=== PATIENT | female | born 1990 | race Caucasian/White ===

== ENCOUNTER → 2021-05-02 15:36 | Outpatient (BNVA) | payer SELFPAY | DX: Z76.89 Persons encountering health services in other specified circumstances (principal) ==

== ENCOUNTER 2022-09-16 18:26 | Emergency (ER) | payer OTHER, SELFPAY ==
--- NOTE | ~2022-09-16 | XR_ITS ---
EXAMINATION: XR THORACIC SPINE CLINICAL INFORMATION: Back pain COMPARISON: Dorsal spine 11/21/2016 TECHNIQUE: 2 views of the thoracic spine were obtained. FINDINGS: Thoracic spine vertebrae have normal height and alignment. There is a mild dextroscoliosis of thoracolumbar spine. Thoracic disc space heights are normal. No significant degenerative change. No focal bone lesion. No paraspinal soft tissue abnormality. Compared to the prior study there is no change. XR/XR thoracic spine 3V IMPRESSION: No acute abnormality of the thoracic spine. Mild dextroscoliosis of thoracolumbar spine.
[2022-09-16 19:07] VITALS: BP 135/99; PULSE 89; RESP 20; TEMP 36.1; O2SAT 99; BMI 43.8
--- NOTE | 2022-09-16 19:08 | ED.BACK ---
HPI - Back Pain/Injury General Chief Complaint: Back Pain/Injury <JONATHON Mendez Last Filed: 09/16/22 19:15> Stated Complaint: Severe L lower back pain <JONATHON Mendez Last Filed: 09/16/22 19:15> Time Seen by Provider: 09/16/22 20:10 <JONATHON Mendez Last Filed: 09/16/22 19:15> Source: patient <JONATHON Shrestha Last Filed: 09/16/22 22:18> Mode of arrival: ambulatory <JONATHON Shrestha Last Filed: 09/16/22 22:18> Limitations: no limitations <JONATHON Shrestha Last Filed: 09/16/22 22:18> History of Present Illness HPI Narrative: 32-year-old female no significant medical history presents to the emergency department with left-sided mid/lower back pain that started last week worsening over the past day. Patient denies trauma to the area. She reports the pain is severe, intermittent in nature, sharp, worse with movement particularly with twisting motions and sometimes worse with deep breathing. Patient tells me this has happened to her before however this episode is not going away. Patient denies blunt trauma to the area. She tells me that she was a former smoker however currently vapes, she is currently on oral contraceptives, no history of PE or DVT, no history of cancer, no history of long travel. Patient denies chest pain, shortness of breath, changes in urination, abdominal pain, fevers, chills, nausea, vomiting. <JONATHON Shrestha Last Filed: 09/16/22 22:18> Related Data Home Medications: Previous Rx's Medication Instructions Recorded cyclobenzaprine 10 mg tablet 10 mg PO BEDTIME PRN muscle spasm 09/16/22 #7 tabs ketorolac 10 mg tablet 10 mg PO TID PRN pain 5 days #15 09/16/22 tabs lidocaine 5 % topical patch 1 patch topical DAILY PRN pain #15 09/16/22 ea <JONATHON Mendez Last Filed: 09/16/22 19:15> Allergies/Adverse Reactions: Allergies Allergy/AdvReac Type Severity Reaction Status Date / Time No Known Allergies Allergy Verified 09/16/22 19:13 <JONATHON Mendez - Last Filed: 09/16/22 19:15> Review of Systems Review of Systems: Constitutional : No Weight loss, No Fever, No Chills, ENT/Mouth : No Hearing loss, No Ear Pain, No Nasal Congestion, No Sinus Pain, No Hoarseness, No sore throat, No Rhinorrhea, No Swallowing Difficulty Cardiovascular : No Chest Pain, No SOB Respiratory : No Cough, No Dyspnea Gastrointestinal : No Nausea, No Vomiting, No Diarrhea, No abdominal Pain, No Hematochezia, No Melena Genitourinary : No Dysuria, No Urinary Frequency, No Hematuria, No Urinary Incontinence, Musculoskeletal : positive back pain Skin : No Skin Lesions, No rash Neuro : No Weakness, No Numbness, No Paresthesias, no loss of bowel or bladder incontinence, no saddle anesthesia <JONATHON Shrestha - Last Filed: 09/16/22 22:18> Yes all other systems are reviewed and are negative <JONATHON Shrestha - Last Filed: 09/16/22 22:18> [facility] Past Medical History Attestation statement: The following information was validated with the patient. <JONATHON Shrestha - Last Filed: 09/16/22 22:18> Source: old records reviewed and nursing notes reviewed <JONATHON Shrestha - Last Filed: 09/16/22 22:18> Social History Social History: Social History Advance Directives: No Advance Directives Information Provided: Yes <JONATHON Mendez - Last Filed: 09/16/22 19:15> Physical Exam Vital Signs: Vital Signs: Last Vital Signs Temp 96.9 F 09/16/22 19:07 Pulse 89 09/16/22 19:07 Resp 20 09/16/22 19:07 BP 135/99 H 09/16/22 19:07 Pulse Ox 99 09/16/22 19:07 O2 Del Method 09/16/22 19:07 BMI result Body Mass Index 43.8 <JONATHON Mendez - Last Filed: 09/16/22 19:15> Vital Signs: Last Vital Signs Temp 96.9 F 09/16/22 19:07 Pulse 89 09/16/22 19:07 Resp 20 09/16/22 19:07 BP 135/99 H 09/16/22 19:07 Pulse Ox 99 09/16/22 19:07 O2 Del Method 09/16/22 19:07 BMI result Body Mass Index 43.8 vss <JONATOHN Shrestha - Last Filed: 09/16/22 22:18> Appearance: Alert.? Oriented X3.? No acute distress.? Head: Normocephalic, atraumatic, no step-offs or deformities Eyes: Pupils equal, round and reactive to light.? ENT: Pharynx normal.? Neck: Normal inspection.? Neck supple.? CVS: Normal heart rate and rhythm.? Pulses normal.? Respiratory: No respiratory distress.? Breath sounds normal.? Abdomen: Soft and nontender.? Skin: Skin warm and dry.? Normal skin color.? Normal skin turgor.? Extremities: No lower extremity edema.? No calf ttp. 5/5 strength to bilateral upper and lower extremities Back: No midline tenderness, no C-spine tenderness, full range of motion, no CVA tenderness bilaterally + pain with palpation to left lumbar and thoracic paraspinous muscles. No midline tenderness Neuro: Oriented X 3.? No motor deficit.? No sensory deficit. CN 2-12 intact . Ambulating with steady gait normal coordination. No saddle paresthesias. <JONATHON Shrestha - Last Filed: 09/16/22 22:18> Course Course Course Narrative: RME-- 32 yo F w/ no sig pmhx presenting to the ED c/o left midback pain beginning last week worsening today. Admits pain worse with movement. Denies dysuria/hematuria, injury, trauma, fall, incontinence/retention Left thoracic paraspinal tenderness noted on exam. No red flag symptoms. X-rays ordered per patient request, UA/. Patient is driving today <JONATHON Mendez - Last Filed: 09/16/22 19:15> Reevaluation(s) Reevaluation #1: Xray of thoracic spine no acute findings however mild dextroscoliosis of thoracolumbar spine. CBC within normal limits. Chemistry with no acute findings requiring intervention. Troponin negative, D-dimer negative. UA clean I did at suspect infection, likely contaminated. Urine negative. I do not suspect ACS or PE. Patient given Toradol, Lidoderm patches. Educated patient on diagnosis and treatment plan, answered all question, patient verbalizes understanding. At this time patient will be discharged home, advised to return with new or worsening symptoms. Educated on worrisome signs and symptoms and when to return. At this time I feel comfortable discharge home. <JONATHON Shrestha - Last Filed: 09/16/22 22:18> Time: 22:17 <JONATHON Shrestha - Last Filed: 09/16/22 22:18> Medications Administered Discontinued Medications Generic Name Dose Route Start Last Admin Trade Name Freq PRN Reason Stop Dose Admin Ketorolac Tromethamine 30 mg 09/16/22 21:41 09/16/22 22:01 Ketorolac Tromethamine 30 Mg/Ml Vial IM 09/16/22 21:42 30 mg ONCE ONE Administration Lidocaine 1 patch 09/16/22 21:41 09/16/22 22:01 Lidocaine 4 % Patch Adh..Patch TRANSDERMA 09/16/22 21:42 1 patch ONCE ONE Administration Protocol <JONATHON Mendez - Last Filed: 09/16/22 19:15> Medications Administered Discontinued Medications Generic Name Dose Route Start Last Admin Trade Name Freq PRN Reason Stop Dose Admin Ketorolac Tromethamine 30 mg 09/16/22 21:41 09/16/22 22:01 Ketorolac Tromethamine 30 Mg/Ml Vial IM 09/16/22 21:42 30 mg ONCE ONE Administration Lidocaine 1 patch 09/16/22 21:41 09/16/22 22:01 Lidocaine 4 % Patch Adh..Patch TRANSDERMA 09/16/22 21:42 1 patch ONCE ONE Administration Protocol <JONATHON Shrestha - Last Filed: 09/16/22 22:18> Medical Decision Making Medical Decision Making MDM Narrative: 32-year-old female presents with mid/lower back pain atraumatic to the left side. Worsening over the past day however present for a week. Physical exam with pain with palpation to left lumbar and thoracic paraspinous muscles. No midline tenderness. Ambulatory with steady gait normal coordination. Likely lumbar/thoracic sprain/strain or spasm. Unlikely cauda equina, epidural abscess, PE, kidney stone, pyelo. Plan at this time labs, imaging, urine. <JONATHON Shrestha - Last Filed: 09/16/22 22:18> Differential Diagnosis Differential Diagnoses: The differential diagnosis associated with the presentation includes <JONATHON Shrestha - Last Filed: 09/16/22 22:18> Likely lumbar/thoracic sprain/strain or spasm. Unlikely cauda equina, epidural abscess, PE, kidney stone, pyelo. <JONATHON Shrestha - Last Filed: 09/16/22 22:18> Admission/Observation Consideration of admission/observation: Escalation of care including admission/observation considered <JONATHON Shrestha - Last Filed: 09/16/22 22:18> Not indicated <JONATHON Shrestha - Last Filed: 09/16/22 22:18> Lab Data MDM Lab Attestation statement: I reviewed the patient's lab results. <JONATHON Shrestha - Last Filed: 09/16/22 22:18> Result Diagrams: : 09/16/22 20:52 09/16/22 20:52 <JONATHON Mendez - Last Filed: 09/16/22 19:15> Labs: Lab Results 09/16/22 09/16/22 09/16/22 Range/Units 19:25 19:25 20:52 WBC (4.8-10.8) X10*3/uL RBC (4.20-5.50) X10*6/uL Hgb (12.0-16.0) g/dl Hct (37.0-47.0) % MCV (80.0-98.0) fL MCH (27.0-33.0) pg MCHC (31.0-35.0) g/dl RDW (11.0-16.0) % Plt Count (160-400) X10*3/uL MPV (9.4-12.3) fL Immature Gran % (Auto) (0.0-0.4) % Neut % (Auto) (45-73) % Lymph % (Auto) (20-40) % Bremer % (Auto) (2-11) % Eos % (Auto) (0-4) % Baso % (Auto) (0-2) % Lymph # (Auto) (1.2-4.9) X10*3/uL Bremer # (Auto) (0.1-1.2) X10*3/uL Eos # (Auto) (0.0-0.4) X10*3/uL Baso # (Auto) (0.0-0.2) X10*3/uL Abs Immat Gran (auto) (0.00-0.03) X10*3/uL Absolute Neuts (auto) (2.0-8.3) x10*3/uL Absolute Nucleated RBC (0.0-0.012) X10*3/uL Nucleated RBC % (auto) (0.0-0.2) /100WBC D-Dimer High Sensitivty < 150 NG/ML Sodium (135-145) mmol/L Potassium (3.3-5.1) mmol/L Chloride (96-108) mmol/L Carbon Dioxide (22-29) mmol/L Anion Gap (12-20) BUN (9-16) mg/dL Creatinine (0.5-1.4) mg/dL Estim Creat Clear Calc Estimated GFR Random Glucose (60-115) mg/dL Calcium (8.4-10.2) mg/dL Magnesium (1.6-2.6) mg/dL Total Bilirubin (0.0-1.0) mg/dL AST (5-31) U/L ALT (0-31) U/L Alkaline Phosphatase (39-117) U/L Troponin I High Sens (<3.5-17.0) ng/L Total Protein (6.5-8.0) g/dL Albumin (3.5-5.0) g/dL Urine Color Yellow Urine Appearance Clear Urine pH 5.5 (5.0-9.0) Ur Specific [place] >= 1.030 H (1.005-1.025) Urine Protein Negative (Neg-Trace) mg/dL Urine Glucose (UA) Negative (Negative) mg/dL Urine Ketones Negative (Negative) mg/dL Urine Blood Negative (Negative) Urine Nitrite Negative (Negative) Ur Leukocyte Esterase Trace H (Negative) Urine RBC 0-2 (0-2) /HPF Urine WBC 11-20 H (0-5) /HPF Ur Squamous Epith Cells 3-5 (0-2) /HPF Urine Bacteria Trace (None Seen) Hyaline Casts 3-5 (0-2) /LPF Urine Test NEGATIVE (NEGATIVE) 09/16/22 09/16/22 09/16/22 Range/Units 20:52 20:52 20:52 WBC 7.7 (4.8-10.8) X10*3/uL RBC 4.46 (4.20-5.50) X10*6/uL Hgb 12.3 (12.0-16.0) g/dl Hct 38.7 (37.0-47.0) % MCV 86.8 (80.0-98.0) fL MCH 27.6 (27.0-33.0) pg MCHC 31.8 (31.0-35.0) g/dl RDW 12.7 (11.0-16.0) % Plt Count 245 (160-400) X10*3/uL MPV 9.5 (9.4-12.3) fL Immature Gran % (Auto) 0.3 (0.0-0.4) % Neut % (Auto) 53.2 (45-73) % Lymph % (Auto) 34.6 (20-40) % Bremer % (Auto) 7.9 (2-11) % Eos % (Auto) 3.3 (0-4) % Baso % (Auto) 0.7 (0-2) % Lymph # (Auto) 2.7 (1.2-4.9) X10*3/uL Bremer # (Auto) 0.6 (0.1-1.2) X10*3/uL Eos # (Auto) 0.3 (0.0-0.4) X10*3/uL Baso # (Auto) 0.1 (0.0-0.2) X10*3/uL Abs Immat Gran (auto) 0.02 (0.00-0.03) X10*3/uL Absolute Neuts (auto) 4.1 (2.0-8.3) x10*3/uL Absolute Nucleated RBC 0.000 (0.0-0.012) X10*3/uL Nucleated RBC % (auto) 0.0 (0.0-0.2) /100WBC D-Dimer High Sensitivty NG/ML Sodium 139 (135-145) mmol/L Potassium 3.9 (3.3-5.1) mmol/L Chloride 108 (96-108) mmol/L Carbon Dioxide 23 (22-29) mmol/L Anion Gap 12 (12-20) BUN 12 (9-16) mg/dL Creatinine 0.69 (0.5-1.4) mg/dL Estim Creat Clear Calc 163.6 Estimated GFR > 60 Random Glucose 77 (60-115) mg/dL Calcium 8.9 (8.4-10.2) mg/dL Magnesium 2.1 (1.6-2.6) mg/dL Total Bilirubin 0.8 (0.0-1.0) mg/dL AST 18 (5-31) U/L ALT 22 (0-31) U/L Alkaline Phosphatase 82 (39-117) U/L Troponin I High Sens < 3.5 (<3.5-17.0) ng/L Total Protein 7.2 (6.5-8.0) g/dL Albumin 4.4 (3.5-5.0) g/dL Urine Color Urine Appearance Urine pH (5.0-9.0) Ur Specific [place] (1.005-1.025) Urine Protein (Neg-Trace) mg/dL Urine Glucose (UA) (Negative) mg/dL Urine Ketones (Negative) mg/dL Urine Blood (Negative) Urine Nitrite (Negative) Ur Leukocyte Esterase (Negative) Urine RBC (0-2) /HPF Urine WBC (0-5) /HPF Ur Squamous Epith Cells (0-2) /HPF Urine Bacteria (None Seen) Hyaline Casts (0-2) /LPF Urine Test (NEGATIVE) <JONATHON Mendez - Last Filed: 09/16/22 19:15> Lab Results 09/16/22 09/16/22 09/16/22 Range/Units 19:25 19:25 20:52 WBC (4.8-10.8) X10*3/uL RBC (4.20-5.50) X10*6/uL Hgb (12.0-16.0) g/dl Hct (37.0-47.0) % MCV (80.0-98.0) fL MCH (27.0-33.0) pg MCHC (31.0-35.0) g/dl RDW (11.0-16.0) % Plt Count (160-400) X10*3/uL MPV (9.4-12.3) fL Immature Gran % (Auto) (0.0-0.4) % Neut % (Auto) (45-73) % Lymph % (Auto) (20-40) % Bremer % (Auto) (2-11) % Eos % (Auto) (0-4) % Baso % (Auto) (0-2) % Lymph # (Auto) (1.2-4.9) X10*3/uL Bremer # (Auto) (0.1-1.2) X10*3/uL Eos # (Auto) (0.0-0.4) X10*3/uL Baso # (Auto) (0.0-0.2) X10*3/uL Abs Immat Gran (auto) (0.00-0.03) X10*3/uL Absolute Neuts (auto) (2.0-8.3) x10*3/uL Absolute Nucleated RBC (0.0-0.012) X10*3/uL Nucleated RBC % (auto) (0.0-0.2) /100WBC D-Dimer High Sensitivty < 150 NG/ML Sodium (135-145) mmol/L Potassium (3.3-5.1) mmol/L Chloride (96-108) mmol/L Carbon Dioxide (22-29) mmol/L Anion Gap (12-20) BUN (9-16) mg/dL Creatinine (0.5-1.4) mg/dL Estim Creat Clear Calc Estimated GFR Random Glucose (60-115) mg/dL Calcium (8.4-10.2) mg/dL Magnesium (1.6-2.6) mg/dL Total Bilirubin (0.0-1.0) mg/dL AST (5-31) U/L ALT (0-31) U/L Alkaline Phosphatase (39-117) U/L Troponin I High Sens (<3.5-17.0) ng/L Total Protein (6.5-8.0) g/dL Albumin (3.5-5.0) g/dL Urine Color Yellow Urine Appearance Clear Urine pH 5.5 (5.0-9.0) Ur Specific [place] >= 1.030 H (1.005-1.025) Urine Protein Negative (Neg-Trace) mg/dL Urine Glucose (UA) Negative (Negative) mg/dL Urine Ketones Negative (Negative) mg/dL Urine Blood Negative (Negative) Urine Nitrite Negative (Negative) Ur Leukocyte Esterase Trace H (Negative) Urine RBC 0-2 (0-2) /HPF Urine WBC 11-20 H (0-5) /HPF Ur Squamous Epith Cells 3-5 (0-2) /HPF Urine Bacteria Trace (None Seen) Hyaline Casts 3-5 (0-2) /LPF Urine Test NEGATIVE (NEGATIVE) 09/16/22 09/16/22 09/16/22 Range/Units 20:52 20:52 20:52 WBC 7.7 (4.8-10.8) X10*3/uL RBC 4.46 (4.20-5.50) X10*6/uL Hgb 12.3 (12.0-16.0) g/dl Hct 38.7 (37.0-47.0) % MCV 86.8 (80.0-98.0) fL MCH 27.6 (27.0-33.0) pg MCHC 31.8 (31.0-35.0) g/dl RDW 12.7 (11.0-16.0) % Plt Count 245 (160-400) X10*3/uL MPV 9.5 (9.4-12.3) fL Immature Gran % (Auto) 0.3 (0.0-0.4) % Neut % (Auto) 53.2 (45-73) % Lymph % (Auto) 34.6 (20-40) % Bremer % (Auto) 7.9 (2-11) % Eos % (Auto) 3.3 (0-4) % Baso % (Auto) 0.7 (0-2) % Lymph # (Auto) 2.7 (1.2-4.9) X10*3/uL Bremer # (Auto) 0.6 (0.1-1.2) X10*3/uL Eos # (Auto) 0.3 (0.0-0.4) X10*3/uL Baso # (Auto) 0.1 (0.0-0.2) X10*3/uL Abs Immat Gran (auto) 0.02 (0.00-0.03) X10*3/uL Absolute Neuts (auto) 4.1 (2.0-8.3) x10*3/uL Absolute Nucleated RBC 0.000 (0.0-0.012) X10*3/uL Nucleated RBC % (auto) 0.0 (0.0-0.2) /100WBC D-Dimer High Sensitivty NG/ML Sodium 139 (135-145) mmol/L Potassium 3.9 (3.3-5.1) mmol/L Chloride 108 (96-108) mmol/L Carbon Dioxide 23 (22-29) mmol/L Anion Gap 12 (12-20) BUN 12 (9-16) mg/dL Creatinine 0.69 (0.5-1.4) mg/dL Estim Creat Clear Calc 163.6 Estimated GFR > 60 Random Glucose 77 (60-115) mg/dL Calcium 8.9 (8.4-10.2) mg/dL Magnesium 2.1 (1.6-2.6) mg/dL Total Bilirubin 0.8 (0.0-1.0) mg/dL AST 18 (5-31) U/L ALT 22 (0-31) U/L Alkaline Phosphatase 82 (39-117) U/L Troponin I High Sens < 3.5 (<3.5-17.0) ng/L Total Protein 7.2 (6.5-8.0) g/dL Albumin 4.4 (3.5-5.0) g/dL Urine Color Urine Appearance Urine pH (5.0-9.0) Ur Specific [place] (1.005-1.025) Urine Protein (Neg-Trace) mg/dL Urine Glucose (UA) (Negative) mg/dL Urine Ketones (Negative) mg/dL Urine Blood (Negative) Urine Nitrite (Negative) Ur Leukocyte Esterase (Negative) Urine RBC (0-2) /HPF Urine WBC (0-5) /HPF Ur Squamous Epith Cells (0-2) /HPF Urine Bacteria (None Seen) Hyaline Casts (0-2) /LPF Urine Test (NEGATIVE) <JONATHON Shrestha - Last Filed: 09/16/22 22:18> Independent Interpretation I performed an independent interpretation of an: Plain X-Ray (XR/XR thoracic spine 3V IMPRESSION: No acute abnormality of the thoracic spine. Mild dextroscoliosis of thoracolumbar spine. ) <JONATHON Shrestha - Last Filed: 09/16/22 22:18> Radiology Impression Discussion of test interpretation with radiology: I have reviewed the radiologist's reading. <JONATHON Shrestha - Last Filed: 09/16/22 22:18> Independent Historian Clinical information obtained from an independent historian. History obtained from or confirmed by: Other (Self ) <JONATHON Shrestha - Last Filed: 09/16/22 22:18> Core Measures AMI core measures followed: Yes <JONATHON Shrestha - Last Filed: 09/16/22 22:18> Measure exclusions: not indicated <JONATHON Shrestha - Last Filed: 09/16/22 22:18> Discharge Plan Discharge Clinical Impression: Thoracic back pain, Strain of lumbar region <JONATHON Mendez - Last Filed: 09/16/22 19:15> Patient Disposition: Home, Self-Care <JONATHON Mendez - Last Filed: 09/16/22 19:15> Instructions: Low Back Strain (ED), Thoracic Pain (ED), Back Pain (ED) <JONATHON Mendez - Last Filed: 09/16/22 19:15> Additional Instructions: Take your medications as prescribed. If you were prescribed antibiotics today, it is important that you take your medication to their entirety, do not skip any doses, do not finish them early. Follow-up with your primary care provider this week. Return to the emergency department with new or worsening symptoms. Such as fevers, chills, chest pain, shortness of breath, nausea, vomiting, dizziness, headache, vision changes, lethargy In case of emergency call 911 Cyclobenzaprine is muscle relaxer can make you drowsy please do not take this while driving or operating machinery. Do not mix with alcohol. Take Toradol as prescribed, do not mix with alcohol, other NSAIDs or ibuprofen. It can cause acute kidney injury an increased risk for bleeding. <JONATHON Mendez - Last Filed: 09/16/22 19:15> Prescriptions: New cyclobenzaprine 10 mg tablet 10 mg PO BEDTIME PRN (Reason: muscle spasm) Qty: 7 0RF ketorolac 10 mg tablet 10 mg PO TID PRN (Reason: pain) 5 Days Qty: 15 0RF Rx Instructions: Tolerated IM in the department lidocaine 5 % adhesive patch,medicated 1 patch topical DAILY PRN (Reason: pain) Qty: 15 0RF Rx Instructions: leave on most painful area for up to 12 hrs <JONATHON Mendez - Last Filed: 09/16/22 19:15> Referrals: Physician,Unknown J [Primary Care Provider] - 2 days <JONATHON Mendez - Last Filed: 09/16/22 19:15> Stand Alone Forms: Work/School Release <JONATHON Mendez - Last Filed: 09/16/22 19:15>
--- OUTSIDE RECORDS SUMMARY | 2022-09-16 19:33 | XMS_ITS | Continuity of Care Document ---
:1990 Author Organization [facility] [address] Address [address] [place] [address]- Care Team Providers Name Role Phone Regino Horton MD Primary Care Physician Encounter [facility] [place](s): 04/28/22 - 05/28/22 [facility] [address] [place] [address]- Attending Physician: Albert Tejeda Admitting Physician: AdmtrAlbert Referring Physician: AdmtrAlbert Allergies, Adverse Reactions, Alerts No Known Allergies Immunizations Given and Recorded Vaccine Date Status Refusal Reason Human Papillomavirus Vaccine 05/24/13 Given tetanus/diphtheria/pertussis, acel(Tdap) 09/29/11 Given influenza virus vaccine, inactivated 06/10/11 Given Medications ibuprofen 600 mg oral tablet 600 mg, 1, tablet, By Mouth, Every 6 hours, PRN, # 25 tablet, Refills 0, Tot. Refills 0, Maintenance, Pain , Mild, 04/14/22 13:34:00 EDT, Route to Pharmacy Electronically, [facility]/pharmacy #[id number], Partial fill upon patient request if the prescription is fo... Start Date: 04/14/22 Status: OrderedoxyCODONE 5 mg oral tablet 5 mg, 1, tablet, By Mouth, Every 6 hours, PRN, # 12 tablet, Refills 0, Tot. Refills 0, Maintenance, Pain , Moderate, 04/14/22 8:51:00 EDT, Route to Pharmacy Electronically, [facility] #[id number],Partial fill upon patient request if the prescrip... Start Date: 04/14/22 Status: OrderedoxyCODONE 5 mg oral tablet 5 mg, 1, tablet, By Mouth, Every 6 hours, PRN, # 15 tablet, Refills 0, Tot. Refills 0, Maintenance, Pain , Moderate, 04/14/22 13:32:00 EDT, Route to Pharmacy Electronically, [facility]/pharmacy #[id number], Partialfill upon patient request if the prescription is... Start Date: 04/14/22 Status: OrderedSeasonale oral tablet 1 tablet, By Mouth, Daily, # 91 tablet, 2 Refills, Maintenance, 12/18/14 12:53:19, Tablet, 1 tablet By Mouth Daily,x91 days Start Date: 12/18/14 Stop Date: 09/17/15 Status: Ordered Problem List Condition Effective Dates Status Health Status Informant bicornuate uterus(Confirmed)1 Active Severe obesity(Confirmed) Active 1bicornuate uterus Care Team PersonnelName: Regino Horton MD Address: [address] [place] [address] [facility] [place], [place] [address]
--- OUTSIDE RECORDS SUMMARY | 2022-09-16 19:33 | XMS_ITS | Continuity of Care Document ---
:1990 Author Organization [facility] Address [address] [place] [address]- Care Team Providers Name Role Phone Clifford ISABEL, Regino Silva Primary Care Phys[place] [facility] [place] - 04/15/[address] [address]- Attending Physician: Melany Perez MD Admitting Physician: Melany Perez MD Allergies, Adverse Reactions, Alerts No Known Allergies Immunizations Given and Recorded Vaccine Date Status Refusal Reason Human Papillomavirus Vaccine 05/24/13 Given tetanus/diphtheria/pertussis, acel(Tdap) 09/29/11 Given influenza virus vaccine, inactivated 06/10/11 Given Medications acetaminophen 650 mg oral tablet, extended release 1 tablet = 650 mg, By Mouth, Every 8 hours, PRN Pain , Mild, for 7 days, # 20 tablet, 0 Refills, Acute 04/21/22 13:35:00 EDT, 04/14/22 13:35:00 EDT, ER Tablet, [facility]/pharmacy #[id number], Partial fill upon patient request if the prescription is for a schedule... Start Date: 04/14/22 Stop Date: 04/21/22 Status: Orderedibuprofen 600 mg oral tablet 600 mg, 1, tablet, By Mouth, Every 6 hours, PRN, # 25 tablet, Refills 0, Tot. Refills 0, Maintenance, Pain , Mild, 04/14/22 13:34:00 EDT, Route to Pharmacy Electronically, [facility]/pharmacy #[id number], Partial fill upon patient request if the prescription is fo... Start Date: 04/14/22 Status: OrderedoxyCODONE 5 mg oral tablet 5 mg, 1, tablet, By Mouth, Every 6 hours, PRN, # 12 tablet, Refills 0, Tot. Refills 0, Maintenance, Pain , Moderate, 04/14/22 8:51:00 EDT, Route to Pharmacy Electronically, [facility] #[id number],Partial fill upon patient request if the prescrip... Start Date: 04/14/22 Status: OrderedoxyCODONE 5 mg oral tablet 5 mg, 1, tablet, By Mouth, Every 6 hours, PRN, # 15 tablet, Refills 0, Tot. Refills 0, Maintenance, Pain , Moderate, 04/14/22 13:32:00 EDT, Route to Pharmacy Electronically, [facility]/pharmacy #[id number], Partialfill upon patient request if the prescription is... Start Date: 04/14/22 Status: OrderedSeasonale oral tablet 1 tablet, By Mouth, Daily, # 91 tablet, 2 Refills, Maintenance, 12/18/14 12:53:19, Tablet, 1 tablet By Mouth Daily,x91 days Start Date: 12/18/14 Stop Date: 09/17/15 Status: Ordered Problem List Condition Effective Dates Status Health Status Informant bicornuate uterus(Confirmed)1 Active Severe obesity(Confirmed) Active 1bicornuate uterus Vital Signs Most recent to oldest [Reference Range]: 1 Height 171.00 cm (04/08/22 11:01 AM) Blood Pressure [90-138/55-84 mm Hg] 140/78 mm Hg *H* (04/08/22 11:01 AM) Blood pressure sites Arm, right (04/08/22 11:01 AM)
[2022-09-16 19:34] LABS: Appearance Urine Clear; Color Urine Yellow; Glucose Urine UA Negative (Negative); Leukocyte Esterase Urine Trace (Negative); Nitrite Urine Negative (Negative); PH 5.5 (5.0-9.0); Specific Gravity - Urine >= 1.030 (1.005-1.025); UMIC TRIGGER UACC YES; Urine Blood Negative (Negative); Urine Ketones Negative (Negative); Urine Protein Negative (Neg-Trace)
--- OUTSIDE RECORDS SUMMARY | 2022-09-16 19:34 | XMS_ITS | Continuity of Care Document ---
:1990 Author Organization [facility] nter Address [address] [place] [id number]- Care Team Providers Name Role Phone Regino Horton MD Primary Care Physician Encounter [facility] [place] Date(s): 04/14/22 - 04/14/[address] [address]- Discharge Disposition: A-D/C Home Attending Physician: Melany Perez MD Admitting Physician: Melany Perez MD Referring Physician: Melany Perez MD Allergies, Adverse Reactions, [...] 13:35:00 EDT, 04/14/22 13:35:00 EDT, ER Tablet, [facility]/pharmacy #[id number], Partial fill upon patient request if the prescription is for a schedule... Start Date: 04/14/22 Stop Date: 04/21/22 Status: OrderedFENTanyl Inj 50 mcg, Injection, IV Push Slowly, Every 5 minutes, PRN for Pain , Moderate, Routine, 04/14/22 9:40:00 EDT Start Date: 04/14/22 Stop Date: 04/14/22 Status: Discontinuedibuprofen 600 mg oral tablet 600 mg, 1, tablet, By Mouth, Every 6 hours, PRN, # 25 tablet, Refills 0, Tot. Refills 0, Maintenance, Pain , Mild, 04/14/22 13:34:00 EDT, Route to Pharmacy Electronically, [facility]/pharmacy #[id number], Partial fill upon patient request if the prescription is fo... Start Date: 04/14/22 Status: OrderedoxyCODONE 5 mg oral tablet 5 mg, 1, tablet, By Mouth, Every 6 hours, PRN, # 12 tablet, Refills 0, Tot. Refills 0, Maintenance, Pain , Moderate, 04/14/22 8:51:00 EDT, Route to Pharmacy Electronically, [facility] #[id number],Partial fill upon patient request if the prescrip... Start Date: 04/14/22 Status: OrderedoxyCODONE 5 mg oral tablet 5 mg, 1, tablet, By Mouth, Every 6 hours, PRN, # 15 tablet, Refills 0, Tot. Refills 0, Maintenance, Pain , Moderate, 04/14/22 13:32:00 EDT, Route to Pharmacy Electronically, [facility]/pharmacy #[id number], Partialfill upon patient request if the prescription is... Start Date: 04/14/22 Status: OrderedPercocet-5 Tablet 1 tablet, Tablet, By Mouth, Every 4 hours, PRN for Pain , Moderate, Routine, 04/14/22 9:17:00 EDT Start Date: 04/14/22 Stop Date: 04/14/22 Status: DiscontinuedSeasonale oral tablet 1 tablet, By Mouth, Daily, # 91 tablet, 2 Refills, Maintenance, 12/18/14 12:53:19, Tablet, 1 tablet By Mouth Daily,x91 days Start Date: 12/18/14 Stop Date: 09/17/15 Status: Ordered Problem List Condition Effective Dates Status Health Status Informant bicornuate uterus(Confirmed)1 Active Severe obesity(Confirmed) Active 1bicornuate uterus Procedures Procedure Date Related Diagnosis Body Site Status Laparoscopy removal of IUD C ompleted Vital Signs Most recent to oldest 1 2 3 [Reference Range]: Height 170 cm (04/14/22 6:44 AM) Weight 139.3 kg (04/14/22 6:44 AM) Oxygen Saturation [94-100 %] 100 % 100 % 100 % (04/14/22 10:30 AM) (04/14/22 10:15 AM) (04/14/22 10:0 0 AM) Pulse Rate [55-90 bpm] 90 bpm (04/14/22 6:44 AM) Body Mass Index [18.5-24.99] 48.2 *>HHI* (04/14/22 6:44 AM) Blood Pressure [90-138/55-84 mm 126/69 mm Hg 126/69 mm Hg 127/81 mm Hg Hg] (04/14/22 10:30 AM) (04/14/22 10:15 AM) (04/14/22 10:0 0 AM) Respiratory Rate [16-30 br/min] 20 br/min 16 br/min 18 br/min (04/14/22 10:30 AM) (04/14/22 10:16 AM) (04/14/22 10:0 1 AM) Temperature [96.8-100.4 DegF] 98.2 DegF 97 DegF 97 .8 DegF (04/14/22 10:00 AM) (04/14/22 9:00 AM) (04/14/22 6:44 AM) Liters per Minute 6 L/min 6 L/min 6 L/min (04/14/22 9:15 AM) (04/14/22 9:10 AM) (04/14/22 9:05 A M) Mode of Delivery (Oxygen) Room air Room air Room a ir (04/14/22 10:30 AM) (04/14/22 10:15 AM) (04/14/22 10:0 0 AM) Blood pressure sites Arm, left (04/14/22 6:44 AM) Temperature Route Temporal Temporal Temporal (04/14/22 10:00 AM) (04/14/22 9:00 AM) (04/14/22 6:44 AM) Dry Weight 139.3 kg (04/14/22 6:44 AM) Weight Obtained Via Standing scale (04/14/22 6:44 AM) Dry Weight Obtained Via Standing scale (04/14/22 6:44 AM)
--- OUTSIDE RECORDS SUMMARY | 2022-09-16 19:34 | XMS_ITS | Continuity of Care Document ---
:1990 Author Organization [facility] Address [address] [place] [address]- Care Team Providers Name Role Phone Clifford ISABEL, Regino Silva Primary Care Physician Encounter [facility] [place] Date(s): 04/28/22 - 05/05/[address] [address]- Attending Physician: Melany Perez MD Admitting Physician: [...] 04/14/22 13:34:00 EDT, Route to Pharmacy Electronically, [facility]/pharmacy #[id number], Partial fill upon patient request if the prescription is fo... Start Date: 04/14/22 Status: OrderedoxyCODONE 5 mg oral tablet 5 mg, 1, tablet, By Mouth, Every 6 hours, PRN, # 12 tablet, Refills 0, Tot. Refills 0, Maintenance, Pain , Moderate, 04/14/22 8:51:00 EDT, Route to Pharmacy Electronically, [facility] #[id number],Partial fill upon patient request if the prescrip... Start Date: 04/14/22 Status: OrderedoxyCODONE 5 mg oral tablet 5 mg, 1, tablet, By Mouth, Every 6 hours, PRN, # 15 tablet, Refills 0, Tot. Refills 0, Maintenance, Pain , Moderate, 04/14/22 13:32:00 EDT, Route to Pharmacy Electronically, [facility]/pharmacy #[id number], Partialfill upon patient request if the prescription [...] recent to oldest [Reference Range]: 1 Height 170 cm (04/28/22 10:42 AM)
--- OUTSIDE RECORDS SUMMARY | 2022-09-16 19:34 | XMS_ITS | Continuity of Care Document ---
:1990 Author Organization [facility] Address [address] [place] [id number]- Care Team Providers Name Role Phone Clifford ISABEL, Regino Silva Primary Care Physician Encounter [facility] Date(s): 10/17/19 - 10/17/[address] [address]- [facility] Attending Physician: Alka Bonilla CNM Allergies, Adverse Reactions, Alerts Substance Reaction Severity Status NKA Active Immunizations Given and Recorded Vaccine Date Status Refusal Reason Human Papillomavirus Vaccine 05/24/13 Given tetanus/diphtheria/pertussis, acel(Tdap) 09/29/11 Given influenza virus vaccine, inactivated 06/10/11 Given Medications Seasonale oral tablet 1 tablet, By Mouth, Daily, # 91 tablet, 2 Refills, Maintenance, 12/18/14 12:53:19, Tablet, 1 tablet By Mouth Daily,x91 days Start Date: 12/18/14 Stop Date: 09/17/15 Status: Ordered Problem List Condition Effective Dates Status Health Status Informant Septate uterus(Confirmed) Active
[2022-09-16 19:36] LABS: UPreg QC Valid YES; Urine Pregnancy NEGATIVE (NEGATIVE)
[2022-09-16 19:53] LABS: Bacteria Urine Trace (None Seen); RBC Urine 0-2 /HPF (0-2); UACC Culture Trigger YES
[2022-09-16 20:57] LABS: MANUAL DIFF FLAG NO
[2022-09-16 20:59] LABS: Basophils Absolute Auto 0.1 X10*3/uL (0.0-0.2); Basophils Percent Auto 0.7 % (0-2); Eosinophils Absolute Auto 0.3 X10*3/uL (0.0-0.4); Eosinophils Percent Auto 3.3 % (0-4); Hematocrit 38.7 % (37.0-47.0); Hemoglobin 12.3 g/dl (12.0-16.0); Imm Gran Abs Auto 0.02 X10*3/uL (0.00-0.03); Imm Gran Pct Auto 0.3 % (0.0-0.4); Lymphocytes Absolute Auto 2.7 X10*3/uL (1.2-4.9); Lymphocytes Percent Auto 34.6 % (20-40); Mean Corpuscular HGB Conc 31.8 g/dl (31.0-35.0); Mean Corpuscular Hemoglobin 27.6 pg (27.0-33.0); Mean Corpuscular Volume 86.8 fL (80.0-98.0); Mean Platelet Volume 9.5 fL (9.4-12.3); Monocytes Absolute Auto 0.6 X10*3/uL (0.1-1.2); Monocytes Percent Auto 7.9 % (2-11); Neutrophils Absolute Auto 4.1 x10*3/uL (2.0-8.3); Neutrophils Percent Auto 53.2 % (45-73); Platelet Count 245 X10*3/uL (160-400); Red Blood Count 4.46 X10*6/uL (4.20-5.50); Red Cell Distribution Width 12.7 % (11.0-16.0); White Blood Count 7.7 X10*3/uL (4.8-10.8)
[2022-09-16 21:27] LABS: D Dimer High Sensitivity < 150 NG/ML
[2022-09-16 21:29] LABS: Alanine Aminotransferase 22 U/L (0-31); Albumin Level 4.4 g/dL (3.5-5.0); Alkaline Phosphatase 82 U/L (39-117); Anion Gap 12 (12-20); Aspartate Amino Transferase 18 U/L (5-31); Bilirubin Total 0.8 mg/dL (0.0-1.0); Blood Urea Nitrogen 12 mg/dL (9-16); Calcium 8.9 mg/dL (8.4-10.2); Carbon Dioxide 23 mmol/L (22-29); Chloride 108 mmol/L (96-108); Creatinine Clr Calc Pharmacy 163.6; Estimated Glomerular Filt Rate > 60; Glucose Random 77 mg/dL (60-115); Magnesium 2.1 mg/dL (1.6-2.6); Potassium 3.9 mmol/L (3.3-5.1); Sodium 139 mmol/L (135-145); Total Protein 7.2 g/dL (6.5-8.0)
[2022-09-16 21:35] LABS: Troponin-I High Sensitivity < 3.5 ng/L (<3.5-17.0)
[2022-09-16] MEDS: Lidocaine 4 % Patch ADH..PATCH 1 PATCH TRANSDERMA (22:01)
[2022-09-16] MEDS: Ketorolac Tromethamine 30 MG/ML VIAL IM (22:01)
== END 2022-09-16 22:27 | disposition home or self-care (01) ==
PROVIDERS: Physician Assistant; Emergency Provider Internal Medicine
DX: S39.012A Strain of muscle, fascia and tendon of lower back, initial encounter (principal); X58.XXXA Exposure to other specified factors, initial encounter; M54.6 Pain in thoracic spine; Y93.9 Activity, unspecified; Y92.9 Unspecified place or not applicable; Y99.9 Unspecified external cause status
CPT/HCPCS: 36415; 72072; 80053; 81001; 81025; 83735; 84484; 85025; 85379; 87086; 96372; 99283; 99284; J1885